=== PATIENT | female | born 1960 | race Caucasian/White ===

== ENCOUNTER 2020-04-08 08:04 | Day surgery (SDC) | payer SELFPAY ==
[2020-04-08] VITALS (9 sets, daily range): BP systolic 131–175; BP diastolic 58–96; PULSE 80–101; RESP 16–18; TEMP 36.3–36.6; O2SAT 95–100; BMI 30.2
--- NOTE | 2020-04-08 08:07 | XR_ITS ---
WS: [id number] Exam: XR chest 1V portable [id number] Date/Time of Exam: 04/08/2020 8:14 AM Reason For Exam: dyspnea/cough No priors. The lungs are clear and fully inflated. Mild bilateral apical pleural thickening. No pleural effusion s. Cardiomediastinal structures are unremarkable. Moderate-sized hiatal hernia. Mild fibrous scarring in the bilateral upper lobes. Old posterior lateral right sixth rib fracture. Bony structures are ot herwise unremarkable. XR/XR chest 1V portable [id number] IMPRESSION: 1. No acute cardiopulmonary finding. 2. Moderate-sized hiatal hernia.
[2020-04-08] MEDS: sodium chloride 0.9% 1,000 ML 999 ML IV (08:20)
[2020-04-08] MEDS: ondansetron 2 mg/ML SDV 2 mL 4 MG IVP (08:21)
[2020-04-08 08:29] LABS: Basophils % 0.2 %; Hematocrit 42.6 % (37.0-47.0); Hemoglobin 13.5 g/dL (11.5-15.3); Lymphocytes # 1.2 10^3/uL (0.8-4.8); Mean Corpuscular HGB Conc 31.7 g/dL (30.0-36.0); Mean Corpuscular Hemoglobin 28.5 pg (28.0-34.0); Mean Corpuscular Volume 90.1 fL (81-99); Mean Platelet Volume 11.1 fL (7.4-10.4); Monocytes # 0.6 10^3/uL (0.2-0.9); Monocytes % 4.9 %; Neutrophils # 9.38 10^3/uL (1.8-7.7); Neutrophils % 83.4 %; Nucleated Red Blood Cells % 0 %; Platelet Count 335 10^3/cmm (130-400); Red Blood Count 4.73 10^6/uL (4.1-5.3); Red Cell Distribution Width 13.6 % (12.1-15.1); White Blood Count 11.3 10^3/uL (4.0-10.0)
--- NOTE | 2020-04-08 08:50 | ED_ITS ---
HPI - Nausea/Vomiting/Diarrhea General: Chief complaint: Nausea/Vomiting/Diarrhea Stated complaint: vomiting, cannot keep anything down Time Seen by Provider: 04/08/20 08:06 History of Present Illness: HPI Narrative: 59 yo female present with difficulty swallowing. Started last night, she states she is unable to swallow liquids. He has had this intermittently in the past for last couple years but is never seen anybody. She not routinely taking any antacids or PPIs, she does get a lot of regurgitation. She denies any hematemesis or coffee-ground emesis. She not having any chest pain. Is gotten a little better this morning but she says through the night she could not even swallow saliva and every 10 to 15 minutes she be throwing up oral secretions. MD elicited complaint: nausea and vomiting Onset (ago): hour(s) Description of vomiting: watery Associated nausea: Yes Associated abdominal pain: No Location of pain: Chest (lower) Pain consistency: intermittent Quality: cramping and aching Exacerbating factors: eating Associated symtoms: Reports chest pain, anorexia and nausea; Denies altered mental status, anxiety, bloating, change in vision, diaphoresis, decreased urine output, dizziness, dysuria, epistaxis, fatigue, fecal incontinence, fevers/chills, headache(s), malaise, myalgias, numbness, palpitations, rash, short of breath, syncope, tenesmus, tinnitus, weakness or other Review of Systems Const: Denies: fatigue, malaise or diaphoresis Eyes: Denies: change in vision ENMT: Denies: tinnitus or epistaxis Card: Reports: chest pain; Denies: palpitations or syncope Resp: Denies: dyspnea, productive cough or non-productive cough GI: Reports: nausea; Denies: bloating or fecal incontinence : Denies: dysuria Skin/Breast: Denies: rash or pruritus Neuro: Denies: headache(s) or dizziness Psych: Denies: anxiety Physical Exam Const: COMMON NORMALS: no acute distress EXAM LIMITATIONS: no altered mental status GENERAL APPEARANCE: cooperative and comfortable ORIENTATION/CONSCIOUSNESS: Yes awake, Yes oriented to person, Yes oriented to place and Yes oriented to time HENMT: COMMON NORMALS: normocephalic, atraumatic and hearing grossly normal bilaterally HEAD & SCALP: normocephalic and atraumatic Neck/C-Spine: COMMON NORMALS: no JVD Lymph: LYMPHATIC: no lymphadenopathy noted and no lymphedema noted Resp: COMMON NORMALS: normal respiratory effort, No retractions, No use of accessory muscles and clear to auscultation bilaterally AUSCULTATION: clear to auscultation bilaterally Cardio: COMMON NORMALS: no JVD, regular rate, regular rhythm and No murmurs present (Cardio) RATE: regular rate RHYTHM: regular rhythm GI: COMMON NORMALS: Soft to palpation and No hepatosplenomegaly present AUSCULTATION: Yes normoactive bowel sounds PALPATION: Yes Soft to palpation, No Tenderness to palpation present (GI), No Guarding due to palpation present (GI) and Yes No hepatosplenomegaly present Extremity: COMMON NORMALS: normal to inspection, capillary refill normal, no clubbing, cyanosis or edema, no calf tenderness and no pedal edema Neuro: SENSORIUM/ORIENTATION: Yes oriented to person, Yes oriented to place and Yes oriented to time Skin: COMMON NORMALS: no rashes or lesions noted GENERAL SKIN EXAM: no rashes or lesions noted Course Vital Signs: Vital signs: Vital Signs Temperature 97.9 F 04/08/20 09:13 Pulse Rate 97 04/08/20 09:27 Respiratory Rate 17 04/08/20 09:27 Blood Pressure 133/86 04/08/20 09:27 Pulse Oximetry 98 04/08/20 09:27 MDM - Nausea/Vomiting/Diarrhea MDM Narrative: Medical decision making narrative: Patient has a little bit improvement but still has difficulty swallowing secretions and cannot swallow any foods. Discussed Dr. Yung patient admitted to outpatient surgery from the ER for EGD for food bolus Lab Data: Labs: Lab Results 04/08/20 04/08/20 04/08/20 Range/Units 08:18 08:18 09:00 WBC 11.3 H (4.0-10.0) 10^3/ uL RBC 4.73 (4.1-5.3) 10^6/u L Hgb 13.5 (11.5-15.3) g/dL Hct 42.6 (37.0-47.0) % MCV 90.1 (81-99) fL MCH 28.5 (28.0-34.0) pg MCHC 31.7 (30.0-36.0) g/dL RDW 13.6 (12.1-15.1) % Plt Count 335 (130-400) 10^3/c mm MPV 11.1 H (7.4-10.4) fL Neut % (Auto) 83.4 % Lymph % (Auto) 11.0 % [place] % (Auto) 4.9 % Eos % (Auto) 0.0 % Baso % (Auto) 0.2 % Neut # (Auto) 9.38 H (1.8-7.7) 10^3/u L Lymph # (Auto) 1.2 (0.8-4.8) 10^3/u L [place] # (Auto) 0.6 (0.2-0.9) 10^3/u L Eos # (Auto) 0.0 (0.0-0.8) 10^3/u L Baso # (Auto) 0.0 (0.0-0.1) 10^3/u L Nucleated RBC % (a uto) 0 % Nucleated RBCs # 0.0 /100WBC Sodium Cancelled 143 Potassium Cancelled 3.7 Chloride Cancelled 108 H Carbon Dioxide Cancelled 23 Anion Gap Cancelled 15.7 BUN Cancelled 12 Creatinine Cancelled 0.6 GFR Calculation Cancelled 102.3 Glucose Cancelled 142 H Calculated Osmolal ity Cancelled 298 H Calcium Cancelled 9.1 Total Bilirubin Cancelled 0.4 AST Cancelled 12 ALT Cancelled 8 Alkaline Phosphata se Cancelled 105 Total Protein Cancelled 7.4 Albumin Cancelled 4.2 Globulin Cancelled 3.2 Lipase Cancelled 18 Discharge Plan Discharge Patient Disposition: Admitted As Inpatient Clinical Impression: Food impaction of esophagus Condition: Stable Coding Level of Care Code ED Motor Lodge Clerk for Leonardo Ann
--- NOTE | 2020-04-08 08:52 | PM.HP ---
Providers/Chief Complaint Primary Care Provider: Yogi John DO Chief Complaint: vomiting, cannot keep anything down History of Present Illness Chief Complaint: I have problem with swallowing History of present illness: Nery Stevenson is a 59 year old female presents to the emergency department with worsening difficulty in swallowing and drooling saliva, patient had a lunch yesterday comprised of chicken without any bones as she reports, at that time she felt something was kind of stuck and she thought that it would be better over time yet it got worse and went to the urgent care yesterday and patient did not feel much relief so she came to the ER later on and a chest x-ray was obtained that showed: The lungs are clear and fully inflated. Mild bilateral apical pleural thickening. No pleural effusions. Cardiomediastinal structures are unremarkable. Moderate-sized hiatal hernia. Mild fibrous scarring in the bilateral upper lobes. Old posterior lateral right sixth rib fracture. Bony structures are otherwise unremarkable. XR/XR chest 1V portable [id number] IMPRESSION: 1. No acute cardiopulmonary finding. 2. Moderate-sized hiatal hernia. Patient reports prior episodes but never required intervention or hospitalization, she comes today escorted by her daughter and she said if it was not getting worse I would not have come to the ER. Patient denies any hematemesis and she is otherwise healthy, no history of fevers chills or shortness of breath. No history of previous surgeries or anesthesia and she had her delivery being normal. Review of Systems General: Reports: 10 or more systems reviewed and unremarkable except in HPI and below Medications/Allergies Allergies Allergy/AdvReac Type Severity Reaction Status Date / Time No Known Allergies Allergy Verified 04/08/20 09:35 Vitals/I&O/Wt Last Vital Signs Temp 97.3 F L 04/08/20 08:05 Pulse 90 04/08/20 08:18 Resp 17 04/08/20 08:18 BP 175/96 04/08/20 08:18 Pulse Ox 97 04/08/20 08:18 Weight last 48 hrs Weight 160 lb Physical Exam Narrative: EXAM NARRATIVE: Patient is conscious alert oriented X3 BMI 30.2 Head and neck examination PERRLA no masses no cervical lymphadenopathy no jaundice Cardiac examination audible S1-S2 no murmurs no gallops no arrhythmias Chest is clear bilateral,abscence of Rhonchi or wheezes,no surgical emphysema Abdomen nontender nondistended soft no organomegaly guarding or rigidity/no signs of peritonitis Extremities no cyanosis no clubbing no edema Data : 04/08/20 08:18 04/08/20 09:00 A&P Assessment and plan (1) Food impaction of esophagus: Plan of care; After thorough history and physical examination and reviewing the chart and images with my personal interpretation of the chest x-ray, plan to perform a diagnostic esophagogastroduodenoscopy with possible biopsy and food disimpaction in the OR as patient will be intubated. I discussed with the patient in detail the risk,benefits,alternatives and indications.The risk of aspiration, bleeding, soft tissue injury, perforation of the stomach/esophagus and other potential concomitant complications were explained to the patient in details.The patient understood this well and did agree to proceed. Rationale was carefully and clearly discussed with the patient.Appropriate informed consent have been reviewed and signed All questions have been answered and all concerns have been addressed to patient's satisfaction. Status: Acute Attestations Medical Necessity Statement*: Out patient in the bed Time Spent in Patient Care: (>than 50% of time spent in counselling and/or direct pt care on unit). Coding Level of Care Code Acute Import Coordination And Production Head for Chg Fwd Diagnoses Food impaction of esophagus T18.128A
[2020-04-08 09:22] LABS: Alanine Aminotransferase 8 U/L (0-33); Albumin Level 4.2 g/dL (3.5-5.2); Alkaline Phosphatase 105 IU/L (35-105); Anion Gap 15.7 (5-19); Aspartate Amino Transferase 12 U/L (0-32); Blood Urea Nitrogen 12 mg/dL (6-20); Calcium 9.1 mg/dL (8.5-10.5); Carbon Dioxide 23 mmol/L (22-29); Chloride 108 mmol/L (98-107); Globulin 3.2 g/dL (1.3-4.6); Glomerular Filtration Rate 102.3 mL/min (90-130); Glucose 142 mg/dL (65-115); Lipase 18 U/L (13-60); Osmolality Calculated 298 mOsm/kg (285-295); Potassium 3.7 mmol/L (3.5-5.1); Sodium 143 mmol/L (136-145); Total Bilirubin 0.4 mg/dL (0.15-1.2); Total Protein 7.4 g/dL (6.6-8.7)
--- NOTE | 2020-04-08 10:13 | P.ANESASSM_ITS ---
Pre-Anesthetic Assessment Pre-Anesthetic Assessment: Height/Weight: Height 1.55 m Weight 72.575 kg Temp Pulse Resp BP Pulse Ox 97.9 F 97 17 133/86 98 04/08/20 09:13 04/08/20 09:27 04/08/20 09:27 04/08/20 09:27 04/08/20 09:27 Preop Diagnosis: Food impaction Proposed Procedure: Operation Date: 04/08/20 10:20 Proposed Procedures p EGD(Not Applicable) - Jose Yung MD Was Beta Dominique taken within 24 hours: N/A Last intake: Intake Last Liquid Date 04/07/20 Last Liquid Time 16:00 Last Solid Date 04/08/20 Last Solid Time 12:00 Social: Social History: No alcohol and No tobacco Exam: Pre-Anes Outpt Exam: alert, oriented x 3, clear to auscultation bila terally and regular rate & rhythm Airway: Submandibular: WNL Cervical ROM: WNL MP: 2 Dentition: Full History/ROS: No significant history except as noted and No significant complaints Pulmonary: Pulmonary: None reported CV/HEM: CV/HEM: None reported : : None reported Hepatic: Hepatic: None reported GI: GI: None reported Metabolic: Metabolic: None reported Musc/skel: Musc/skel: None reported Neuropsych: Neuropsych: Anxiety Anesthetic Plan: ASA status: 2 Anesthesia: Anesthesia Evaluation and General Risk of > 500 ml blood loss (7ml/kg in children): No Data Anesthesia CBC & Chem 7: 04/08/20 08:18 04/08/20 09:00 Other Labs: Laboratory Results - last 48 hr 04/08/20 04/08/20 04/08/20 08:18 08:18 09:00 WBC 11.3 H RBC 4.73 Hgb 13.5 Hct 42.6 MCV 90.1 MCH 28.5 MCHC 31.7 RDW 13.6 Plt Count 335 MPV 11.1 H Neut % (Auto) 83.4 Lymph % (Auto) 11.0 [place] % (Auto) 4.9 Eos % (Auto) 0.0 Baso % (Auto) 0.2 Neut # (Auto) 9.38 H Lymph # (Auto) 1.2 [place] # (Auto) 0.6 Eos # (Auto) 0.0 Baso # (Auto) 0.0 Nucleated RBC % (auto) 0 Nucleated RBCs # 0.0 Sodium Cancelled 143 Potassium Cancelled 3.7 Chloride Cancelled 108 H Carbon Dioxide Cancelled 23 Anion Gap Cancelled 15.7 BUN Cancelled 12 Creatinine Cancelled 0.6 GFR Calculation Cancelled 102.3 Glucose Cancelled 142 H Calculated Osmolality Cancelled 298 H Calcium Cancelled 9.1 Total Bilirubin Cancelled 0.4 AST Cancelled 12 ALT Cancelled 8 Alkaline Phosphatase Cancelled 105 Total Protein Cancelled 7.4 Albumin Cancelled 4.2 Globulin Cancelled 3.2 Lipase Cancelled 18 Cardiac Studies: No Data to Display
[2020-04-08] MEDS: sodium chloride 0.9% 1,000 ML 30 ML IV (10:18)
--- NOTE | 2020-04-08 11:50 | SUR.PHASEII ---
IV DC ED CATHETER INTACT. 300ml NORMAL SALINE INFUSED.
--- NOTE | 2020-04-08 12:13 | ANE.PACU2 ---
Inpatient post-anesthesia follow up: Airway intact: Yes Vital signs: Temperature 97.4 F Pulse Rate [Monito r] 101 Pulse Rate 80 Respiratory Rate 18 Blood Pressure [Ri ght Arm] 175/96 Blood Pressure 134/82 Pulse Oximetry 98 Oxygen Delivery Me thod Room Air Oxygen Flow Rate 8 Fraction of Inspir ed Oxygen Hydration adequate: Yes Nausea and vomiting: No Pain level: 1 Mental status: Baseline
[2020-04-09 07:25] LABS: H. Pylori / CLO Test Negative
== END 2020-04-08 11:54 | disposition home or self-care (01) ==
LOC: ER 08:50 → OPS 08:52
PROVIDERS: Emergency Provider Family Medicine; PCP Family Medicine; Visit Provider Surgery
PROC: 0DJ08ZZ Inspection of Upper Intestinal Tract, Via Natural or Artificial Opening Endoscopic (ICD-10-PCS; CPT 43235; principal; 2020-04-08 10:20)
DX: T18.128A Food in esophagus causing other injury, initial encounter (principal); K22.2 Esophageal obstruction; K44.9 Diaphragmatic hernia without obstruction or gangrene; K29.70 Gastritis, unspecified, without bleeding; F41.9 Anxiety disorder, unspecified
CPT/HCPCS: 12345; 36415; 43239; 71045; 80053; 83690; 85025; 87077; 96372; 99283; J0330; J1100; J1610; J2405; J2704; J7030

== ENCOUNTER 2020-05-20 09:01 | Outpatient (CLI) | payer SELFPAY ==
--- NOTE | 2020-05-20 09:07 | FL_ITS ---
WS: [id number] DOUBLE CONTRAST UPPER GI EXAMINATION HISTORY: T18.128A - Food in esophagus causing other injury, initial encounter COMPARISON: None available. FLUOROSCOPY TIME: 4.0 minutes. Patient swallowed the barium mixture without difficulty. No strictures in the upper and mid esophagus . Mild tertiary contractions and dysmotility distally. There is intermittent narrowing of the distal esophagus probably due to spasm. There is very mild persistent narrowing of the distal esophagus. Bar ium tablet became briefly lodged in the distal esophagus. With the patient in a lateral position ther e is evidence for a paraesophageal hernia. The barium tablet is noted in the distal esophagus and the re is a portion of the stomach anterior extending above the diaphragm. This paraesophageal hernia is a very large at times during the examination. There is also a component of a hiatal hernia at the GE junction. Moderate amount of reflux was noted. Duodenal bulb was normal. FL/FL upper GI w air* [id number] IMPRESSION: 1. Very large hernia is noted at the GE junction. On the lateral projection th e esophagus enters the upper abdomen posterior to this large hernia. I favor th is is probably a paraesophageal hernia which becomes very large with the patien t supine. There is also a component of a hiatal hernia. 2. Moderate amount of reflux. 3. Mild narrowing of the distal esophagus. Barium tablet was slightly delayed entering the stomach.
== END 2020-05-20 09:02 | disposition home or self-care (01) ==
LOC: RADWPI 09:04
PROVIDERS: PCP Family Medicine; Visit Provider Surgery
DX: T18.128A Food in esophagus causing other injury, initial encounter (principal); K46.9 Unspecified abdominal hernia without obstruction or gangrene
CPT/HCPCS: 74246

== ENCOUNTER 2021-08-27 16:40 | Emergency (ER) | payer SELFPAY ==
[2021-08-27 16:45] VITALS: PULSE 93; RESP 18; TEMP 36.6; O2SAT 99; BMI 28.3
--- NOTE | 2021-08-27 16:49 | XRR_ITS ---
PROCEDURE INFORMATION: Exam: XR Chest Exam date and time: 08/27/2021 4:58 PM Age: 60 years old Clinical indication: Sternal or substernal pain; Additional info: Chest pain TECHNIQUE: Imaging protocol: Radiologic exam of the chest. Views: 1 view. COMPARISON: CR XR chest 1V portable [id number] 04/08/2020 8:45 AM FINDINGS: Lungs: Shallow inspiration with minimal atelectasis in the left lung base. The lungs are otherwise clear. Pleural spaces: Unremarkable. No pleural effusion. No pneumothorax. Heart/Mediastinum: Hiatal hernia. Bones/joints: Thoracic curvature. Old right rib fracture. No acute fracture. XR/XR chest 1V portable [id number] IMPRESSION: No acute finding.
--- NOTE | 2021-08-27 16:50 | ECG_ITS ---
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 Measurements Intervals [place] Rate: 94 P: 52 NM: 148 QRS: -8 QRSD: 96 T: 21 QT: 363 QTc: 455 Interpretive Statements SINUS RHYTHM No previous ECG available for comparison Electronically Signed On 08-27-2021 20:41:44 CDT by Casey Overton M.D. [id number]
[2021-08-27 16:54] VITALS: BP 186/97
--- NOTE | 2021-08-27 17:08 | W.ED.CHESTPA ---
HPI - Chest Pain General: Chief Complaint: Chest Pain Stated Complaint: chest pain/nausea/headache/fatigue Time Seen by Provider: 08/27/21 17:07 History of Present Illness: 60-year-old female comes in today with complaints of headache, nausea, confusion, and chest discomfort. Patient said about 2:00 she started having a headache which then she got some nausea. Patient then reports starting to get some chest discomfort. Patient reports not feeling like this before. Patient had tried taking the Benadryl and some Tylenol with minimal relief. Patient then took a alprazolam. On arrival to the ER patient does have some improvement in symptoms but family reports that she is not acting like her self. Patient has no cardiac history. There is no strong cardiac family history. Patient does have some high blood pressure, hiatal hernia, and reflux. Associated symptoms: Reports nausea; Deny dyspnea or fever(s) Review of Systems General: Reports: 10 or more systems reviewed and unremarkable except in HPI and below Const: Denies: fever(s) Eyes: Denies: change in vision Card: Reports: chest pain Resp: Denies: dyspnea GI: Reports: nausea : Denies: difficulty voiding Skin/Breast: Denies: rash Neuro: Reports: headache(s) PFSH ED PFSH: Medical History Gastritis Family History Denies family history of Anesthesia complication Bleeding disorder Physical Exam Const: COMMON NORMALS: alert HENMT: COMMON NORMALS: normocephalic and Normal external nose present HEAD & SCALP: normocephalic NOSE: Normal external nose present MOUTH: Normal oral and palatal mucosa present Eye: GENERAL EYE: appearance normal, both eyes and all related structures Neck/C-Spine: COMMON NORMALS: full ROM and no meningeal signs Resp: COMMON NORMALS: normal respiratory effort and clear to auscultation bilaterally AUSCULTATION: clear to auscultation bilaterally Cardio: COMMON NORMALS: regular rate and regular rhythm RATE: regular rate RHYTHM: regular rhythm GI: COMMON NORMALS: Soft to palpation PALPATION: Yes Soft to palpation and Yes Tenderness to palpation present (GI) (Epigastric) Extremity: COMMON NORMALS: normal to inspection and no pedal edema Neuro: SENSORIUM/ORIENTATION: Yes alert MENINGEAL SIGNS: Yes no meningeal signs Skin: COMMON NORMALS: no rashes or lesions noted GENERAL SKIN EXAM: no rashes or lesions noted Course Vital Signs: Vital signs: Vital Signs Temperature 97.9 F 08/27/21 16:45 Pulse Rate 93 08/27/21 16:45 Respiratory Rate 18 08/27/21 16:45 Blood Pressure 186/97 08/27/21 16:54 Pulse Oximetry 99 08/27/21 16:45 MDM - Chest Pain Medical Decision Making 60-year-old female comes in today with nausea, and feeling of malaise. Patient reports poor oral intake. Patient reports some mild pressure in the chest. On exam abdomen was soft with some mild epigastric tenderness. Vitals were normal except for some elevation of blood pressure. Differential diagnosis includes but not limited to atypical chest pain, dehydration, hiatal hernia, gastritis. Chest x-ray noted a hiatal hernia with normal lung argueta. CBC and CMP noted some mildly low sodium and potassium. Troponin was normal at baseline and second hour. EKG was a sinus rhythm with no changes at the second hour. I believe the patient pain was probably due to her hiatal hernia but recommend follow-up with primary care for reevaluation. Patient also had some mild dehydration which we gave 1 L of IV fluids. Patient reported understanding of care plan need for follow-up or return to the ER for worsening symptoms. Lab Data : 08/27/21 17:13 08/27/21 17:13 Radiology Impressions Chest X-Ray 08/27/21 16:49 IMPRESSION: No acute finding. Head CT 08/27/21 17:32 IMPRESSION: No acute intracranial finding. Laboratory Results WBC 9.2 10^3/uL (4.0-10.0) 08/27/21 17:13 RBC 4.60 10^6/uL (4.1-5.3) 08/27/21 17:13 Hgb 13.0 g/dL (11.5-15.3) 08/27/21 17:13 Hct 39.5 % (37.0-47.0) 08/27/21 17:13 MCV 85.9 fl (81-99) 08/27/21 17:13 MCH 28.3 pg (28.0-34.0) 08/27/21 17:13 MCHC 32.9 g/dL (30.0-36.0) 08/27/21 17:13 RDW 13.2 % (12.1-15.1) 08/27/21 17:13 Plt Count 306 10^3/cmm (130-400) 08/27/21 17:13 MPV 10.2 fL (7.4-10.4) 08/27/21 17:13 Neut % (Auto) 71.0 % 08/27/21 17:13 Lymph % (Auto) 15.6 % 08/27/21 17:13 [place] % (Auto) 8.1 % 08/27/21 17:13 Eos % (Auto) 3.5 % 08/27/21 17:13 Baso % (Auto) 0.8 % 08/27/21 17:13 Neut # (Auto) 6.55 10^3/uL (1.8-7.7) 08/27/21 17:13 Lymph # (Auto) 1.4 10^3/uL (0.8-4.8) 08/27/21 17:13 [place] # (Auto) 0.8 10^3/uL (0.2-0.9) 08/27/21 17:13 Eos # (Auto) 0.3 10^3/uL (0.0-0.8) 08/27/21 17:13 Baso # (Auto) 0.1 10^3/uL (0.0-0.1) 08/27/21 17:13 Nucleated RBC % (auto) 0 % 08/27/21 17:13 Nucleated RBCs # 0.0 /100WBC 08/27/21 17:13 Sodium 134 mmol/L (136-145) L 08/27/21 17:13 Sodium Cancelled 08/27/21 17:13 Potassium 3.4 mmol/L (3.5-5.1) L 08/27/21 17:13 Potassium Cancelled 08/27/21 17:13 Chloride 96 mmol/L (98-107) L 08/27/21 17:13 Chloride Cancelled 08/27/21 17:13 Carbon Dioxide 23 mmol/L (22-29) 08/27/21 17:13 Carbon Dioxide Cancelled 08/27/21 17:13 Anion Gap 18.4 (5-19) 08/27/21 17:13 Anion Gap Cancelled 08/27/21 17:13 BUN 9 mg/dL (8-23) 08/27/21 17:13 BUN Cancelled 08/27/21 17:13 Creatinine 0.7 mg/dL (0.5-0.9) 08/27/21 17:13 Creatinine Cancelled 08/27/21 17:13 GFR Calculation 85.4 mL/min (90-130) L 08/27/21 17:13 GFR Calculation Cancelled 08/27/21 17:13 Glucose 128 mg/dL (65-115) H 08/27/21 17:13 Glucose Cancelled 08/27/21 17:13 Calculated Osmolality 278 mOsm/kg (285-295) L 08/27/21 17:13 Calculated Osmolality Cancelled 08/27/21 17:13 Calcium 9.3 mg/dL (8.5-10.5) 08/27/21 17:13 Calcium Cancelled 08/27/21 17:13 Total Bilirubin 0.2 mg/dL (0.15-1.2) 08/27/21 17:13 AST 15 U/L (0-32) 08/27/21 17:13 ALT 10 U/L (0-33) 08/27/21 17:13 Alkaline Phosphatase 107 IU/L (35-105) H 08/27/21 17:13 Troponin T Baseline 6 ng/L (0-10) 08/27/21 17:13 Troponin T 120 Minute 6.00 ng/L (0-10) 08/27/21 19:12 Total Protein 7.8 g/dL (6.6-8.7) 08/27/21 17:13 Albumin 4.7 g/dL (3.5-5.2) 08/27/21 17:13 Globulin 3.1 g/dL (1.3-4.6) 08/27/21 17:13 Lipase 50 U/L (13-60) 08/27/21 17:13 Discharge Plan Discharge Patient Disposition: Home Clinical Impression: Atypical chest pain, Hiatal hernia, Dehydration Condition: Stable Prescriptions: No Action Protonix 40 mg tablet,delayed release (DR/EC) 40 mg PO DAILY 30 Days Qty: 30 2RF Discharge Orders: Discharge ED (Routine); Ordered 08/27/21 Ordered By: Lul Munoz Referrals: Yogi John DO [Primary Care Provider] - Discharge Diet: Usual diet Discharge Activity: Increase activity as tolerated Patient Instructions: Chest Pain (ED) Activity Restrictions/Additional Instructions: Home and rest. Drink plenty of fluids. Follow-up with primary care in 3 to 5 days. Return to ER for worsening symptoms or new concerns. Coding Level of Care Code ED Ultra Sound Technician for Sug Fwd Exam Comprehensive
[2021-08-27 17:26] LABS: Basophils # 0.1 10^3/uL (0.0-0.1); Basophils % 0.8 %; Eosinophils # 0.3 10^3/uL (0.0-0.8); Eosinophils % 3.5 %; Hematocrit 39.5 % (37.0-47.0); Lymphocytes # 1.4 10^3/uL (0.8-4.8); Lymphocytes % 15.6 %; Mean Corpuscular HGB Conc 32.9 g/dL (30.0-36.0); Mean Corpuscular Hemoglobin 28.3 pg (28.0-34.0); Mean Corpuscular Volume 85.9 fl (81-99); Mean Platelet Volume 10.2 fL (7.4-10.4); Monocytes # 0.8 10^3/uL (0.2-0.9); Monocytes % 8.1 %; Neutrophils # 6.55 10^3/uL (1.8-7.7); Nucleated Red Blood Cells % 0 %; Platelet Count 306 10^3/cmm (130-400); Red Cell Distribution Width 13.2 % (12.1-15.1); White Blood Count 9.2 10^3/uL (4.0-10.0)
--- NOTE | 2021-08-27 17:32 | CTR_ITS ---
PROCEDURE INFORMATION: Exam: CT Head Without Contrast Exam date and time: 08/27/2021 5:47 PM Age: 60 years old Clinical indication: Pain; Headache; Additional info: Confusion, headache TECHNIQUE: Imaging protocol: Computed tomography of the head without contrast. Radiation optimization: All CT scans at this facility use at least one of these dose optimization techniques: automated exposure control; mA and/or kV adjustment per patient size (includes targeted exams where dose is matched to clinical indication); or iterative reconstruction. COMPARISON: No relevant prior studies available. RADIATION DOSE METRICS: Total DLP (mGy-cm): 761.34 FINDINGS: Brain: Mild cortical volume loss. Very mild hypodensities in supratentorial periventricular and subcortical white matter, consistent with microangiopathy. No intracranial hemorrhage. Cerebral ventricles: No ventriculomegaly. Paranasal sinuses: Visualized sinuses are unremarkable. No fluid levels. Mastoid air cells: Visualized mastoid air cells are well aerated. Bones/joints: Unremarkable. No acute fracture. Soft tissues: Unremarkable. Vasculature: No hyperdense artery. CT/CT head wo con* [id number] IMPRESSION: No acute intracranial finding.
[2021-08-27 17:49] LABS: Alanine Aminotransferase 10 U/L (0-33); Albumin Level 4.7 g/dL (3.5-5.2); Alkaline Phosphatase 107 IU/L (35-105); Anion Gap 18.4 (5-19); Aspartate Amino Transferase 15 U/L (0-32); Blood Urea Nitrogen 9 mg/dL (8-23); Calcium 9.3 mg/dL (8.5-10.5); Carbon Dioxide 23 mmol/L (22-29); Chloride 96 mmol/L (98-107); Globulin 3.1 g/dL (1.3-4.6); Glomerular Filtration Rate 85.4 mL/min (90-130); Glucose 128 mg/dL (65-115); Lipase 50 U/L (13-60); Osmolality Calculated 278 mOsm/kg (285-295); Potassium 3.4 mmol/L (3.5-5.1); Sodium 134 mmol/L (136-145); Total Bilirubin 0.2 mg/dL (0.15-1.2); Total Protein 7.8 g/dL (6.6-8.7)
[2021-08-27 17:50] LABS: Troponin(5th) Baseline 6 ng/L (0-10)
[2021-08-27] MEDS: sodium chloride 0.9% 1,000 ML 999 ML IV (18:33)
--- NOTE | 2021-08-27 18:50 | ECG_ITS ---
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 Measurements Intervals [place] Rate: 73 P: 50 RI: 167 QRS: -22 QRSD: 95 T: 34 QT: 403 QTc: 447 Interpretive Statements SINUS RHYTHM BORDERLINE LEFT AXIS DEVIATION [QRS AXIS < -20] Compared to ECG 08/27/2021 16:46:40 No significant changes Electronically Signed On 08-27-2021 20:44:15 CDT by Casey Overton M.D. [id number]
[2021-08-27 19:56] LABS: Troponin 5 2HR Delta 0 ABS# (0-10)
== END 2021-08-27 22:42 | disposition home or self-care (01) ==
PROVIDERS: Emergency Medicine; Emergency Provider Nurse Practitioner Family; PCP Family Medicine
DX: R07.89 Other chest pain (principal); K44.9 Diaphragmatic hernia without obstruction or gangrene; E86.0 Dehydration; R51.9 Headache, unspecified; R53.83 Other fatigue; R11.2 Nausea with vomiting, unspecified
CPT/HCPCS: 70450; 71045; 80053; 83690; 84484; 85025; 93005; 96360; 99285; J7030

== ENCOUNTER → 2021-08-30 10:01 | Outpatient (BNVA) | payer SELFPAY | PROVIDERS: PCP Family Medicine; Visit Provider Clinical Nurse Specialist Adult Health | DX: M54.50 Low back pain, unspecified (principal) | CPT/HCPCS: 81000; 87086 ==

== ENCOUNTER → 2021-09-16 07:08 | Outpatient (BNVA) | payer SELFPAY | PROVIDERS: PCP Family Medicine; Visit Provider Family Medicine | DX: N39.0 Urinary tract infection, site not specified (principal) | CPT/HCPCS: 81000; 87086 ==

== ENCOUNTER → 2022-01-04 17:11 | Outpatient (BNVA) | payer SELFPAY | PROVIDERS: PCP Family Medicine; Visit Provider Family Medicine | DX: R30.0 Dysuria (principal) | CPT/HCPCS: 81000 ==

== ENCOUNTER → 2023-10-03 15:46 | Outpatient (BNVA) | payer SELFPAY | PROVIDERS: PCP Family Medicine; Visit Provider Clinical Nurse Specialist Adult Health | DX: I10 Essential (primary) hypertension (principal); E03.9 Hypothyroidism, unspecified | CPT/HCPCS: 80053; 84443; 85025 ==